=== PATIENT | female | born 1995 | race Caucasian/White ===

== ENCOUNTER 2016-05-08 10:12 | Emergency (ER) | payer OTHER ==
[~2016-05-08] VITALS: Ht 167.6 cm; Wt 45.0 kg
[2016-05-08 10:12] VITALS: BP 122/71; PULSE 120; RESP 15; TEMP 97.8; O2SAT 98
[~2016-05-08 10:12] MED LIST: NAPR-729 PO; ZOFR4TAB3 PO
[2016-05-08 11:10] LABS: AUTOMATED NEUTROPHIL # 3.8 TH/MM3 (1.8-7.7); BASOPHIL % 0.4 % (0.0-2.0); EOSINOPHIL % 0.8 % (0.0-4.0); HEMATOCRIT 39.1 % (35.0-46.0); HEMO FLAGS DIFF FINAL; LYMPH % 19.5 % (9.0-44.0); MEAN CORPUSCULAR HEMOGLOBIN 30.6 PG (27.0-34.0); MONO % 6.3 % (0.0-8.0); PLATELET COUNT 203 TH/MM3 (150-450); RED BLOOD COUNT 4.35 MIL/MM3 (4.00-5.30); RED CELL DISTRIBUTION WIDTH 13.1 % (11.6-17.2); WHITE BLOOD COUNT 5.3 TH/MM3 (4.0-11.0)
[2016-05-08 11:32] LABS: ANION GAP 8 MEQ/L (5-15); AST (GOT) 20 U/L (16-38); BICARBONATE 24.1 MEQ/L (21.0-32.0); BLOOD UREA NITROGEN 8 MG/DL (7-18); CHLORIDE 108 MEQ/L (98-107); GLOMERULAR FILTRATION RATE 103 ML/MIN (>89); POTASSIUM 3.4 MEQ/L (3.5-5.1); SODIUM (NA) 140 MEQ/L (136-145)
[2016-05-08 11:35] LABS: ALKALINE PHOSPHATASE 48 U/L (45-117); ALT (GPT) 29 U/L (9-42); TOTAL BILIRUBIN ADULT 0.7 MG/DL (0.2-1.0)
--- NOTE | 2016-05-08 11:41 | PD ---
HPI Chief Complaint: Syncope/Near-Syncope Time Seen by Provider: 11:40 Travel History International Travel<30 days: No Contact w/Intl Traveler<30days: No Traveled to known affect area: No History of Present Illness HPI 21-year-old presents the emergency department with report of syncope times one last evening. Patient is referred to emergency department by her PCP for further evaluation. Patient states history of syncope while having a bath last evening. Patient denies specific deficits at this time. Patient admits to decreased appetite, and getting full after just a couple of bites. Patient states her food "goes right through her". Patient denies vomiting or nausea. Patient denies abdominal pain. Patient states she's lost 12 pounds in the last month. Patient does admit to increased stress in the last month from school work. Patient denies palpitations or thyroid problems in the past. Patient reports a history of an episode of "blacking out" where her vision went black for approximately 10 minutes while at her sister's college a month ago. She did not fully pass out at that time. Currently she complains of no fever, chills, or other symptoms. Patient denies any history of hair loss. She has no known drug allergies. PFSH Past Medical History ?: Not LMP: NOW Social History Alcohol Use: No Tobacco Use: No Substance Use: No Allergies-Medications (Allergen,Severity, Reaction): Coded Allergies: No Known Allergies (Unverified , 05/08/16) Reported Meds & Prescriptions Reported Meds & Active Scripts Active Naprosyn (Naproxen) 375 Mg Tab 375 Mg PO BID PRN Take as needed for pain, do not combine with other NSAIDs. Zofran ODT (Ondansetron HCl) 4 Mg Tab 4 Mg PO Q6 PRN May substitute, non-ODT form Review of Systems Except as stated in HPI: all other systems reviewed are Neg General / Constitutional: Positive: Weight Loss, No: Fever, Chills Eyes: No: Visual changes HENT: Positive: Lightheadedness, No: Headaches, Vertigo Cardiovascular: No: Chest Pain or Discomfort, Palpitations Respiratory: No: Shortness of Breath Gastrointestinal: Positive: Loss of Appetite, No: Nausea, Vomiting, Diarrhea, Abdominal Pain, Indigestion, Dysphagia Genitourinary: No: Dysuria Musculoskeletal: No: Pain Skin: No Rash Neurologic: Positive: Weakness (generalized. See history present illness.), Syncope (see history present illness.), No: Dizziness, Focal Abnormalities, Coordination Problem, Tremor, Ataxia, Headache, Change in Mentation, Slurred Speech, Paresthesia, Incontinence, Seizures, Sensory Disturbance, Other Psychiatric: No: Depression Endocrine: No: Polydipsia Hematologic/Lymphatic: No: Easy Bruising Physical Exam Narrative GENERAL: Patient appears very thin, but pleasant and in no acute distress. SKIN: Warm and dry. Normal color. Normal turgor. HEAD: Atraumatic. Normocephalic. EYES: Pupils equal and round. No scleral icterus. No injection or drainage. ENT: No nasal bleeding or discharge. Mucous membranes pink and moist. Pharynx appears normal. Teeth are normal. NECK: Trachea midline. No JVD. Supple nontender. No palpable thyroid. CARDIOVASCULAR: Regular rate and rhythm. RESPIRATORY: No accessory muscle use. Clear to auscultation. Breath sounds equal bilaterally. GASTROINTESTINAL: Abdomen soft, non-tender, nondistended. Hepatic and splenic margins not palpable. MUSCULOSKELETAL: Extremities without clubbing, cyanosis, or edema. No obvious deformities. NEUROLOGICAL: Awake and alert. No obvious cranial nerve deficits. Motor grossly within normal limits. Five out of 5 muscle strength in the arms and legs. Normal speech. PSYCHIATRIC: Appropriate mood and affect; insight and judgment normal. Data Data Last Documented VS Vital Signs Date Time Temp Pulse Resp B/P Pulse Ox O2 Delivery O2 Flow Rate FiO2 05/08/16 11:45 110 127/88 05/08/16 11:44 16 16 05/08/16 11:41 99 Room Air 05/08/16 10:12 97.8 Orders Electrocardiogram (05/08/16 10:23) Complete Blood Count With Diff (05/08/16 10:23) Comprehensive Metabolic Panel (05/08/16 10:23) Ed Urine Pregnancytest Poc (05/08/16 11:44) Magnesium (Mg) (05/08/16 11:44) Act Partial Throm Time (Ptt) (05/08/16 11:44) Prothrombin Time / Inr (Pt) (05/08/16 11:44) Urinalysis - C+S If Indicated (05/08/16 11:44) Chest, Single Ap (05/08/16 11:44) Ecg Monitoring (05/08/16 11:44) Iv Access Insert/Monitor (05/08/16 11:44) Oximetry (05/08/16 11:44) Sodium Chloride 0.9% Flush (Ns Flush) (05/08/16 11:45) Sodium Chlor 0.9% 1000 Ml Inj (Ns 1000 M (05/08/16 11:44) Orthostatic Vital Signs (05/08/16 11:44) Thyroid Stimulating Hormone (05/08/16 11:44) Free T3 (05/08/16 11:44) Free Thyroxine (T4) (05/08/16 11:44) Labs Laboratory Tests Test 05/08/16 05/08/16 10:50 11:55 White Blood Count 5.3 TH/MM3 Red Blood Count 4.35 MIL/MM3 Hemoglobin 13.3 GM/DL Hematocrit 39.1 % Mean Corpuscular Volume 90.0 FL Mean Corpuscular Hemoglobin 30.6 PG Mean Corpuscular Hemoglobin 34.0 % Concent Red Cell Distribution Width 13.1 % Platelet Count 203 TH/MM3 Mean Platelet Volume 8.6 FL Neutrophils (%) (Auto) 73.0 % Lymphocytes (%) (Auto) 19.5 % Monocytes (%) (Auto) 6.3 % Eosinophils (%) (Auto) 0.8 % Basophils (%) (Auto) 0.4 % Neutrophils # (Auto) 3.8 TH/MM3 Lymphocytes # (Auto) 1.0 TH/MM3 Monocytes # (Auto) 0.3 TH/MM3 Eosinophils # (Auto) 0.0 TH/MM3 Basophils # (Auto) 0.0 TH/MM3 CBC Comment DIFF FINAL Differential Comment Sodium Level 140 MEQ/L Potassium Level 3.4 MEQ/L Chloride Level 108 MEQ/L Carbon Dioxide Level 24.1 MEQ/L Anion Gap 8 MEQ/L Blood Urea Nitrogen 8 MG/DL Creatinine 0.72 MG/DL Estimat Glomerular Filtration 103 ML/MIN Rate Random Glucose 82 MG/DL Calcium Level 8.6 MG/DL Total Bilirubin 0.7 MG/DL Aspartate Amino Transf 20 U/L (AST/SGOT) Alanine Aminotransferase 29 U/L (ALT/SGPT) Alkaline Phosphatase 48 U/L Total Protein 7.5 GM/DL Albumin 4.1 GM/DL Prothrombin Time 11.8 SEC Prothromb Time International 1.1 RATIO Ratio Activated Partial 27.0 SEC Thromboplast Time Urine Color YELLOW Urine Turbidity HAZY Urine pH 6.0 Urine Specific [place] 1.015 Urine Protein TRACE mg/dL Urine Glucose (UA) NEG mg/dL Urine Ketones 40 mg/dL Urine Occult Blood NEG Urine Nitrite NEG Urine Bilirubin NEG Urine Urobilinogen LESS THAN 2.0 MG/DL Urine Leukocyte Esterase NEG Urine RBC 1 /hpf Urine WBC 2 /hpf Urine Squamous Epithelial 1 /hpf Cells Urine Mucus MANY /lpf Microscopic Urinalysis Comment CULT NOT INDICATED Magnesium Level 2.3 MG/DL Free Thyroxine 1.27 NG/DL Free Triiodothyronine (T3) 2.67 PG/ML pg/dL Thyroid Stimulating Hormone 1.100 uIU/ML 3rd Gen [facility] Medical Decision Making Medical Screen Exam Complete: Yes Emergency Medical Condition: Yes Differential Diagnosis Syncope. Hyperthyroidism. Anorexia. Anxiety. Narrative Course Patient is felt to be medically stable at time of exam. Labs ordered including CBC, CMP, thyroid studies, urinalysis, urine . EKG shows normal sinus rhythm. This was reviewed by Dr. Lopez. Orthostatics are performed. Chest x-ray is ordered. IV access is obtained patient is given 1000 and a normal saline bolus. Patient is mildly orthostatic. Labs are all within normal limits. Chest x-ray is normal per radiologist. Patient is seen by Dr. Lopez as well. Patient is felt to have anorexia, and given outpatient instructions for follow- up. 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
[2016-05-08 11:44] VITALS: BP_SYST 115; BP_SYST 127; BP_DIAS 75; BP_DIAS 88; RESP 16
[2016-05-08] MEDS ORDERED: SODIUM CHLOR 0.9% 1000 ML INJ 1,000 ML IV ONE (11:44)
[2016-05-08 11:45] VITALS: BP 127/88
[2016-05-08] MEDS ORDERED: SODIUM CHLORIDE 0.9% FLUSH 5 ML FLUSH IVF PRN (11:45)
[2016-05-08 12:25] LABS: INTERNATIONAL NORMALIZED RATIO 1.1 RATIO; PROTHROMBIN TIME - PATIENT 11.8 SEC (9.8-11.6)
[2016-05-08 12:39] LABS: BLOOD, URINE NEG (NEG); GLUCOSE,URINE NEG (NEG); KETONE, URINE 40 mg/dL (NEG); MUCUS URINE MANY /lpf (OCC); NITRITE,URINE NEG (NEG); SQUAMOUS EPITHELIAL CELL URINE 1 /hpf (0-5); URINE COLOR YELLOW (YELLW/STRAW)
[2016-05-08 12:42] LABS: FREE T3 2.67 PG/ML (2.18-3.98); FREE T4 1.27 NG/DL (0.76-1.46)
[2016-05-08 12:45] LABS: COMMENT (UR) CULT NOT INDICATED; CULTURE IF INDICATED CULT NOT INDICATED
--- NOTE | 2016-05-08 12:54 | RADRPT ---
EXAM DATE/TIME: 05/08/2016 12:13 [place] COMPARISON: No previous studies available for comparison. INDICATIONS : Syncope, weakness and weight loss MEDICAL HISTORY : None. SURGICAL HISTORY : None. ENCOUNTER: Initial ACUITY: 1 day PAIN SCORE: 0/10 LOCATION: Bilateral chest FINDINGS: A single view of the chest demonstrates the lungs to be symmetrically aerated without evidence of mas s, infiltrate or effusion. The cardiomediastinal contours are unremarkable. Osseous structures are intact. CONCLUSION: No acute disease. Joel Esposito MD FACR on May 08, 2016 at 12:52 Board Certified Radiologist. This report was verified electronically.
--- NOTE | 2016-05-08 12:54 | PD ---
Data Data Last Documented VS Vital Signs Date Time Temp Pulse Resp B/P Pulse Ox O2 Delivery O2 Flow Rate FiO2 05/08/16 11:45 110 127/88 05/08/16 11:44 16 16 05/08/16 11:41 99 Room Air 05/08/16 10:12 97.8 Orders Electrocardiogram (05/08/16 10:23) Complete Blood Count With Diff (05/08/16 10:23) Comprehensive Metabolic Panel (05/08/16 10:23) Ed Urine Pregnancytest Poc (05/08/16 11:44) Magnesium (Mg) (05/08/16 11:44) Act Partial Throm Time (Ptt) (05/08/16 11:44) Prothrombin Time / Inr (Pt) (05/08/16 11:44) Urinalysis - C+S If Indicated (05/08/16 11:44) Chest, Single Ap (05/08/16 11:44) Ecg Monitoring (05/08/16 11:44) Iv Access Insert/Monitor (05/08/16 11:44) Oximetry (05/08/16 11:44) Sodium Chloride 0.9% Flush (Ns Flush) (05/08/16 11:45) Sodium Chlor 0.9% 1000 Ml Inj (Ns 1000 M (05/08/16 11:44) Orthostatic Vital Signs (05/08/16 11:44) Thyroid Stimulating Hormone (05/08/16 11:44) Free T3 (05/08/16 11:44) Free Thyroxine (T4) (05/08/16 11:44) Labs Laboratory Tests Test 05/08/16 05/08/16 10:50 11:55 White Blood Count 5.3 TH/MM3 Red Blood Count 4.35 MIL/MM3 Hemoglobin 13.3 GM/DL Hematocrit 39.1 % Mean Corpuscular Volume 90.0 FL Mean Corpuscular Hemoglobin 30.6 PG Mean Corpuscular Hemoglobin 34.0 % Concent Red Cell Distribution Width 13.1 % Platelet Count 203 TH/MM3 Mean Platelet Volume 8.6 FL Neutrophils (%) (Auto) 73.0 % Lymphocytes (%) (Auto) 19.5 % Monocytes (%) (Auto) 6.3 % Eosinophils (%) (Auto) 0.8 % Basophils (%) (Auto) 0.4 % Neutrophils # (Auto) 3.8 TH/MM3 Lymphocytes # (Auto) 1.0 TH/MM3 Monocytes # (Auto) 0.3 TH/MM3 Eosinophils # (Auto) 0.0 TH/MM3 Basophils # (Auto) 0.0 TH/MM3 CBC Comment DIFF FINAL Differential Comment Sodium Level 140 MEQ/L Potassium Level 3.4 MEQ/L Chloride Level 108 MEQ/L Carbon Dioxide Level 24.1 MEQ/L Anion Gap 8 MEQ/L Blood Urea Nitrogen 8 MG/DL Creatinine 0.72 MG/DL Estimat Glomerular Filtration 103 ML/MIN Rate Random Glucose 82 MG/DL Calcium Level 8.6 MG/DL Total Bilirubin 0.7 MG/DL Aspartate Amino Transf 20 U/L (AST/SGOT) Alanine Aminotransferase 29 U/L (ALT/SGPT) Alkaline Phosphatase 48 U/L Total Protein 7.5 GM/DL Albumin 4.1 GM/DL Prothrombin Time 11.8 SEC Prothromb Time International 1.1 RATIO Ratio Activated Partial 27.0 SEC Thromboplast Time Urine Color YELLOW Urine Turbidity HAZY Urine pH 6.0 Urine Specific [place] 1.015 Urine Protein TRACE mg/dL Urine Glucose (UA) NEG mg/dL Urine Ketones 40 mg/dL Urine Occult Blood NEG Urine Nitrite NEG Urine Bilirubin NEG Urine Urobilinogen LESS THAN 2.0 MG/DL Urine Leukocyte Esterase NEG Urine RBC 1 /hpf Urine WBC 2 /hpf Urine Squamous Epithelial 1 /hpf Cells Urine Mucus MANY /lpf Microscopic Urinalysis Comment CULT NOT INDICATED Magnesium Level 2.3 MG/DL Free Thyroxine 1.27 NG/DL Free Triiodothyronine (T3) 2.67 PG/ML pg/dL Thyroid Stimulating Hormone 1.100 uIU/ML 3rd Gen MDM Supervised Visit with [facility]: Yes Narrative Course I, Dr. Munoz, have reviewed the advance practice practioner's documentation and am in agreement, met with the patient face to face, made the diagnosis, and the medical decision making was done by me. *My assessment and Findings: 23-year-old female with history of syncope yesterday here with decreased appetite for the last several weeks with increasing psychosocial stressors. She's had a 12 pound weight loss. Her BMI is 16. Denies any history of anorexia and mother states that she has always been very thin on the extreme low end of the spectrum even when she was a child. Sr. and mother were also this way. Exam is unremarkable. Differential includes arrhythmia, electrolyte abnormality, anorexia, bulimia, psychosocial stressors. EKG, laboratory workup and chest x-ray were all negative. Patient was given outpatient resources for eating disorders and psychosocial counseling for stress and anxiety. Randee Munoz MD May 08, 2016 12:54
[2016-05-08 13:30] VITALS: BP 105/68
--- NOTE | 2016-05-08 22:33 | EKG ---
Date Performed: 05/08/2016 Time Performed: 10:47:45 PTAGE: 21 years EKG: Sinus rhythm POSSIBLE RIGHT VENTRICULAR CONDUCTION DELAY BORDERLINE ECG NO PREVIOUS TRACING DOCTOR: Elías Currie Interpretating Date/Time 05/08/2016 22:32:42
== END 2016-05-08 13:46 | disposition home or self-care (01) ==
LOC: NEPE 10:12
DX: R55 Syncope and collapse (principal); F50.9 Eating disorder, unspecified; Z68.1 Body mass index [BMI] 19.9 or less, adult; R63.4 Abnormal weight loss
CPT/HCPCS: 71010; 80053; 81001; 83735; 84439; 84443; 84481; 84703; 85025; 85610; 85730; 93005; 99284; J7030